=== PATIENT | male | born 1965 | race Caucasian/White ===

== ENCOUNTER 2019-07-24 07:25 | Emergency (ER) | payer MEDICARE ==
[2019-07-24] MEDS ORDERED: HYDROmorphone 0.5 MG/0.5 ML Syringe IM ONE (08:36)
--- NOTE | 2019-07-24 08:40 | EDM.PDOC ---
ED HPI GENERAL MEDICAL PROBLEM - General Chief Complaint: Lower Extremity Injury/Pain Stated Complaint: RIGHT KNEE LOTS OF PAIN Time Seen by Provider: 07/24/19 08:38 Source of Information: Reports: Patient History Limitations: Reports: No Limitations - History of Present Illness INITIAL COMMENTS - FREE TEXT/NARRATIVE: pt had a vasovagal episode and fell last nite. He landed on his rt knee and he is now having acute pain. He has some swelling in the medial aspect of the knee. Onset: Other (pt fell last nite. ) Duration: Hour(s): Location: Reports: Lower Extremity, Right Associated Symptoms: Reports: No Other Symptoms Right Knee Pain Score (Numeric/FACES): 10 - Related Data Allergies Allergy/AdvReac Type Severity Reaction Status Date / Time codeine Allergy Headache Verified 07/24/19 07:40 Home Meds: Home Meds Carvedilol 25 mg PO BID 04/23/18 [History] Furosemide 20 mg PO QAM 04/23/18 [History] Hydrocortisone [Hydrocortisone 2.5% Crm] 1 applic TOP BID 04/23/18 [History] LORazepam 1 mg PO ASDIRECTED PRN 04/23/18 [History] Verapamil [Calan SR] 300 mg PO BEDTIME 04/23/18 [History] Warfarin [Coumadin] 5 mg PO ASDIRECTED 04/23/18 [History] Losartan Potassium 50 mg PO DAILY 07/24/19 [History] Past Medical History HEENT History: Reports: Cataract Cardiovascular History: Reports: Afib, Automatic Implantable Cardioverter Defibrillators, Cardiomyopathy, Heart Failure, High Cholesterol, Hypertension, Pacemaker Respiratory History: Reports: Pneumothorax Other Respiratory History: right Musculoskeletal History: Reports: Other (See Below) Other Musculoskeletal History: impingement syndrome of both shoulders. tear ACL right. tear riht rotator cuff. Neurological History: Reports: Other (See Below) Other Neuro History: fainting "vasovagal" Psychiatric History: Reports: Addiction, Anxiety Other Psychiatric History: ETOH Dermatologic History: Reports: Other (See Below) Other Dermatologic History: dermatitis - Past Surgical History HEENT Surgical History: Reports: Cataract Surgery Respiratory Surgical History: Reports: Lung Resection GI Surgical History: Reports: Appendectomy Musculoskeletal Surgical History: Reports: Shoulder Surgery Social & Family History - Tobacco Use Smoking Status *Q: Current Every Day Smoker Years of Tobacco use: 42 Packs/Tins Daily: 1 - Caffeine Use Caffeine Use: Reports: None - Recreational Drug Use Recreational Drug Use: No Review of Systems - Review of Systems Review Of Systems: See Below Constitutional: Reports: No Symptoms Eyes: Reports: No Symptoms Ears: Reports: No Symptoms Nose: Reports: No Symptoms Mouth/Throat: Reports: No Symptoms Respiratory: Reports: No Symptoms Cardiovascular: Reports: No Symptoms GI/Abdominal: Reports: No Symptoms Musculoskeletal: Reports: Other (pt is having severe pain in the rt knee. ) ED EXAM, GENERAL - Physical Exam Exam: See Below Free Text/Narrative:: pt arrived with a very uncomfortable knee after a fall last nite. He has swelling on the inner aspect of the knee. He has a past history of a torn acl. Exam Limited By: No Limitations General Appearance: Alert, Anxious, Severe Distress Ears: Normal External Exam Extremities: Other (rt knee has swelling on the medial aspect. He is tender to palpate. Xray reveal;ed no fracture present. He has seen Dr Abel in the past so will make a referal to him for further evaluatuion. ) Neurological: Alert, Oriented, Normal Cognition Course - Vital Signs Last Recorded V/S: Last Vital Signs Temp 35.8 C 07/24/19 07:56 Pulse 68 07/24/19 09:05 Resp 16 07/24/19 09:05 BP 101/52 L 07/24/19 09:05 Pulse Ox 95 07/24/19 09:05 - Orders/Labs/Meds Meds: Medications Discontinued Medications Generic Name Dose Route Start Last Admin Trade Name Lalita PRN Reason Stop Dose Admin Hydromorphone HCl 0.5 mg 07/24/19 08:36 07/24/19 08:41 Dilaudid IM 07/24/19 08:37 0.5 mg ONETIME ONE Administration - Re-Assessments/Exams Free Text/Narrative Re-Assessment/Exam: 07/24/19 09:57 pt was given dilaudid .5 im and he did have relief. His xrays did not reveal a fracture. Departure - Departure Time of Disposition: 09:46 Disposition: Home, Self-Care 01 Condition: Fair Clinical Impression: Ligament tear of lower extremity, Torn ACL - Discharge Information Referrals: Ayden Noel, [facility] [Primary Care Provider] - Forms: ED Department Discharge Care Plan Goals: appt with Dr Abel, knee imoblizer, crutches, percocet 5/325 q6h for the next 2 days then tramodol 50 mg q6h prn for pain, cool pack knee.
--- NOTE | 2019-07-24 09:44 | CRLCR ---
Indication: Severe right knee pain. Technique: Right knee 3 views Comparison: None Findings: No acute fracture or dislocation. The patella is normally aligned. Mild medial compartment joint space narrowing and subchondral sclerosis. No knee joint effusion. Vascular calcifications posterior. Soft tissues are unremarkable. Impression: No acute findings. Dictated by Aida Morrissey MD @ Jul 24 2019 9:40AM Signed by Dr. Aida Morrissey @ Jul 24 2019 9:41AM
== END 2019-07-24 10:19 | disposition home or self-care (01) ==
LOC: JP.ED 07:25
DX: S83.511A Sprain of anterior cruciate ligament of right knee, initial encounter (principal); I48.91 Unspecified atrial fibrillation; I11.0 Hypertensive heart disease with heart failure; I50.9 Heart failure, unspecified; F17.210 Nicotine dependence, cigarettes, uncomplicated; Z88.5 Allergy status to narcotic agent; Z79.899 Other long term (current) drug therapy; W19.XXXA Unspecified fall, initial encounter
CPT/HCPCS: 73562; 96372; 99283; J1170

== ENCOUNTER 2020-02-12 11:11 | Emergency (ER) | payer MEDICARE ==
[2020-02-12] MEDS ORDERED: Ketorolac 60 MG/2 ML SDV IM ONE (12:13)
[2020-02-12] MEDS ORDERED: Cyclobenzaprine 10 MG Tab PO ONE (12:35)
--- NOTE | 2020-02-12 12:41 | EDM.PDOC ---
ED HPI GENERAL MEDICAL PROBLEM - General Chief Complaint: Back Pain or Injury Stated Complaint: BACK PAIN Time Seen by Provider: 02/12/20 12:25 Source of Information: Reports: Patient, EMS, Old Records, RN History Limitations: Reports: No Limitations - History of Present Illness INITIAL COMMENTS - FREE TEXT/NARRATIVE: 54 yo male with low back pain since yesterday not associated with any obvious injury or overuse. Has muscle spasms in his back today. Has a hard time moving. Took acetaminophen without relief. Not able to take NSAID's. No radiation down his legs. Was home alone when his spasms began so came in via EMS. Is , at work. No numbness or weakness of his LE's. No bowel or bladder issues. Has a PHx of recurrent episodes similar to this, has not been to his primary for eval of this condition. Onset: Sudden Onset Date: 02/11/20 Duration: Day(s): (1+), Constant, Getting Worse Location: Reports: Back (low) Quality: Reports: Ache, Stabbing (spasms) Severity: Severe Improves with: Reports: Rest Worsens with: Reports: Movement Context: Reports: Other (See HPI) Associated Symptoms: Reports: No Other Symptoms Treatments PILOT: Reports: Other (see below) (acetaminophen and ice) Lower Back Pain Score (Numeric/FACES): 7 - Related Data Allergies Allergy/AdvReac Type Severity Reaction Status Date / Time codeine Allergy Headache Verified 02/12/20 11:17 Home Meds: Home Meds Furosemide 20 mg PO QAM 04/23/18 [History] Hydrocortisone [Hydrocortisone 2.5% Crm] 1 applic TOP BID 04/23/18 [History] LORazepam 1 mg PO ASDIRECTED PRN 04/23/18 [History] Verapamil [Calan SR] 300 mg PO BEDTIME 04/23/18 [History] Warfarin [Coumadin] 5 mg PO ASDIRECTED 04/23/18 [History] carvediloL [Carvedilol] 25 mg PO BID 04/23/18 [History] Losartan Potassium 50 mg PO DAILY 07/24/19 [History] Acetaminophen/HYDROcodone [Malo 325-5 MG] 1 - 2 tab PO Q6H PRN #14 tab [Rx] Cyclobenzaprine [Flexeril] 10 mg PO TID PRN #14 tab 02/12/20 [Rx] Past Medical History HEENT History: Reports: Cataract Cardiovascular History: Reports: Afib, Automatic Implantable Cardioverter Defibrillators, Cardiomyopathy, Heart Failure, High Cholesterol, Hypertension, Pacemaker Respiratory History: Reports: Pneumothorax Other Respiratory History: right Musculoskeletal History: Reports: Other (See Below) Other Musculoskeletal History: impingement syndrome of both shoulders. tear ACL right. tear riht rotator cuff. Neurological History: Reports: Other (See Below) Other Neuro History: fainting "vasovagal" Psychiatric History: Reports: Addiction, Anxiety Other Psychiatric History: ETOH Dermatologic History: Reports: Other (See Below) Other Dermatologic History: dermatitis - Infectious Disease History Infectious Disease History: Reports: Chicken Pox, Mumps - Past Surgical History HEENT Surgical History: Reports: Cataract Surgery Respiratory Surgical History: Reports: Lung Resection GI Surgical History: Reports: Appendectomy Musculoskeletal Surgical History: Reports: Shoulder Surgery Social & Family History - Tobacco Use Smoking Status *Q: Current Every Day Smoker Years of Tobacco use: 40 Packs/Tins Daily: 0.5 Used Tobacco, but Quit: No Second Hand Smoke Exposure: Yes - Caffeine Use Caffeine Use: Reports: Soda - Alcohol Use Days Per Week of Alcohol Use: 0 - Recreational Drug Use Recreational Drug Use: No ED ROS GENERAL - Review of Systems Review Of Systems: See Below Constitutional: Reports: No Symptoms HEENT: Reports: No Symptoms Respiratory: Reports: No Symptoms Cardiovascular: Reports: No Symptoms GI/Abdominal: Reports: No Symptoms : Reports: No Symptoms Musculoskeletal: Reports: Back Pain (low) Skin: Reports: No Symptoms Neurological: Reports: No Symptoms Psychiatric: Reports: No Symptoms ED EXAM,LOWER BACK PAIN/INJURY - Physical Exam Exam: See Below Exam Limited By: No Limitations General Appearance: Alert, WD/WN, No Apparent Distress Eye Exam: Bilateral Eye: Normal Inspection Ears: Normal External Exam, Normal Canal, Hearing Grossly Normal, Normal TMs Nose: Normal Inspection, No Blood Throat/Mouth: Normal Inspection, Normal Lips, Normal Oropharynx, Normal Voice, No Airway Compromise Head: Atraumatic, Normocephalic Neck: Normal Inspection Respiratory/Chest: No Respiratory Distress, Lungs Clear, Normal Breath Sounds, No Accessory Muscle Use Cardiovascular: Regular Rate, Rhythm GI/Abdominal: Soft, Non-Tender Back Exam: Decreased Range of Motion, Muscle Spasm, Paraspinal Tenderness ( lumbar bilat.). No: CVA Tenderness (R), CVA Tenderness (L), Vertebral Tenderness Extremities: Normal Inspection, Normal Range of Motion, Non-Tender, No Pedal Edema. No: Pedal Edema, Leg Pain Neurological: Alert, Normal Mood/Affect, Normal Dorsiflexion, CN II-XII Intact, No Motor/Sensory Deficits, Oriented x 3 Psychiatric: Normal Affect, Normal Mood Skin Exam: Warm, Dry, Intact, Normal Color, No Rash Course - Vital Signs Last Recorded V/S: Last Vital Signs Temp 36.6 C 02/12/20 11:16 Pulse 60 02/12/20 11:16 Resp 16 02/12/20 11:16 BP 114/78 02/12/20 11:16 Pulse Ox 99 02/12/20 11:16 - Orders/Labs/Meds Orders: Active Orders 24 hr Category Date Time Status Lumbar Spine 2 or 3V [CR] Stat Exams 02/12/20 12:35 Taken Meds: Medications Discontinued Medications Generic Name Dose Route Start Last Admin Trade Name Freq PRN Reason Stop Dose Admin Cyclobenzaprine HCl 10 mg 02/12/20 12:35 02/12/20 12:50 Flexeril PO 02/12/20 12:36 10 mg ONETIME ONE Administration Ketorolac Tromethamine 60 mg 02/12/20 12:13 02/12/20 12:21 Toradol IM 02/12/20 12:14 60 mg ONETIME ONE Administration - Radiology Interpretation Free Text/Narrative:: Lumbar spine x-ray-[id number] disc space narrowing, degen spurring, loss of lumbar lordosis. Departure - Departure Time of Disposition: 13:45 Disposition: Home, Self-Care 01 Condition: Fair Clinical Impression: Low back pain Qualifiers: Chronicity: acute Back pain laterality: bilateral Sciatica presence: without sciatica Qualified Code(s): M54.5 - Low back pain - Discharge Information *PRESCRIPTION DRUG MONITORING PROGRAM REVIEWED*: No *COPY OF PRESCRIPTION DRUG MONITORING REPORT IN PATIENT SIMÓN: No Prescriptions: Acetaminophen/HYDROcodone [Malo 325-5 MG] 1 - 2 tab PO Q6H PRN #14 tab PRN Reason: Pain Cyclobenzaprine [Flexeril] 10 mg PO TID PRN #14 tab PRN Reason: Spasms Instructions: Acute Back Pain, Adult Referrals: PCP,None [Primary Care Provider] - Forms: ED Department Discharge Additional Instructions: Avoid lifting, bending, or twisting. Take Flexeril every 8 hrs as needed for spasms. Take either acetaminophen OR Malo for added relief. May use heat or ice. F/U with your provider for recheck soon. Sepsis Event Note - Evaluation Sepsis Screening Result: No Definite Risk - Focused Exam Vital Signs: Vital Signs Temp Pulse Resp BP Pulse Ox 02/12/20 11:16 36.6 C 60 16 114/78 99 Date Exam was Performed: 02/12/20 Time Exam was Performed: 13:40 - My Orders Last 24 Hours: My Active Orders 02/12/20 12:35 Lumbar Spine 2 or 3V [CR] Stat - Assessment/Plan Last 24 Hours: My Active Orders 02/12/20 12:35 Lumbar Spine 2 or 3V [CR] Stat
--- NOTE | 2020-02-12 13:41 | CR ---
Lumbar Spine 2 or 3V CLINICAL HISTORY: Back pain FINDINGS: The vertebral body heights are maintained. . There is moderate degenerative disc changes at L4-5 and L5-S1 with spondylosis seen diffusely. Patient has a dextrorotoscoliosis. There is a grade 1 retrolisthesis of L3 on L4 likely due to facet disease which is seen diffusely. IMPRESSION: Moderate degenerative disc changes most notable at L4-5 and L5-S1 with diffuse spondylosis Diffuse osteoarthropathy Dextrorotoscoliosis
== END 2020-02-12 13:50 | disposition home or self-care (01) ==
LOC: JP.ED 11:11
DX: M54.5 Low back pain (principal); I48.91 Unspecified atrial fibrillation; I11.0 Hypertensive heart disease with heart failure; I50.9 Heart failure, unspecified; F17.210 Nicotine dependence, cigarettes, uncomplicated; Z79.899 Other long term (current) drug therapy; Z95.0 Presence of cardiac pacemaker; Z88.5 Allergy status to narcotic agent
CPT/HCPCS: 72100; 72100-26; 96372; 99283; 99284-25; A9270-GY; J1885

== ENCOUNTER 2020-06-05 00:52 | Emergency (ER) | payer MEDICARE ==
[2020-06-05] MEDS ORDERED: Albuterol/Ipratropium 3.0-0.5 MG/3 ML Neb Soln NEB ONE (01:38)
--- NOTE | 2020-06-05 01:50 | EDM.PDOC ---
ED HPI GENERAL MEDICAL PROBLEM - General Chief Complaint: Respiratory Problem Stated Complaint: TROUBLE BREATHING Time Seen by Provider: 06/05/20 01:30 Source of Information: Reports: Patient History Limitations: Reports: No Limitations - History of Present Illness INITIAL COMMENTS - FREE TEXT/NARRATIVE: 54-year-old male, chronic smoker, presents with shortness of breath for the past 2 weeks. Seems worse when he lies down, so he thinks he is "filling up with fluid". No fevers or chills. Currently smoking over a pack of cigarettes a day. He does have a history of "double pneumonia" 15 years ago and had a partial pneumonectomy on the right side. Also apparently had an LA and acute cardiac failure. Onset: Gradual Duration: Week(s): (Symptoms for 2 weeks) Associated Symptoms: Reports: Other (Has had some diarrhea, also some hemorrhoids) rib pain due to coughing Pain Score (Numeric/FACES): 6 - Related Data Allergies Allergy/AdvReac Type Severity Reaction Status Date / Time codeine Allergy Headache Verified 06/05/20 01:15 Home Meds: Home Meds Furosemide 20 mg PO QAM 04/23/18 [History] Hydrocortisone [Hydrocortisone 2.5% Crm] 1 applic TOP BID 04/23/18 [History] LORazepam 1 mg PO ASDIRECTED PRN 04/23/18 [History] Verapamil [Calan SR] 300 mg PO BEDTIME 04/23/18 [History] Warfarin [Coumadin] 5 mg PO ASDIRECTED 04/23/18 [History] carvediloL [Carvedilol] 25 mg PO BID 04/23/18 [History] Losartan Potassium 50 mg PO DAILY 07/24/19 [History] Cyclobenzaprine [Flexeril] 10 mg PO TID PRN #14 tab 02/12/20 [Rx] Past Medical History HEENT History: Reports: Cataract Cardiovascular History: Reports: Afib, Automatic Implantable Cardioverter Defibrillators, Cardiomyopathy, Heart Failure, High Cholesterol, Hypertension, Pacemaker Respiratory History: Reports: Pneumothorax Other Respiratory History: right Musculoskeletal History: Reports: Other (See Below) Other Musculoskeletal History: impingement syndrome of both shoulders. tear ACL right. tear riht rotator cuff. crushed discs in back Neurological History: Reports: Other (See Below) Other Neuro History: fainting "vasovagal" Psychiatric History: Reports: Addiction, Anxiety Other Psychiatric History: ETOH Hematologic History: Reports: Anticoagulation Therapy Dermatologic History: Reports: Other (See Below) Other Dermatologic History: dermatitis - Infectious Disease History Infectious Disease History: Reports: Chicken Pox, Mumps - Past Surgical History HEENT Surgical History: Reports: Cataract Surgery Respiratory Surgical History: Reports: Lung Resection GI Surgical History: Reports: Appendectomy Musculoskeletal Surgical History: Reports: Shoulder Surgery Social & Family History - Tobacco Use Smoking Status *Q: Current Every Day Smoker Years of Tobacco use: 44 Packs/Tins Daily: 1 - Caffeine Use Caffeine Use: Reports: None - Recreational Drug Use Recreational Drug Use: No ED ROS GENERAL - Review of Systems Review Of Systems: See Below Constitutional: Reports: Chills, Malaise. Denies: Fever HEENT: Reports: No Symptoms Respiratory: Reports: Shortness of Breath, Cough, Sputum Cardiovascular: Denies: Chest Pain, Palpitations GI/Abdominal: Denies: Abdominal Pain, Nausea, Vomiting Skin: Reports: No Symptoms Neurological: Denies: Headache ED EXAM, GENERAL - Physical Exam Exam: See Below Exam Limited By: No Limitations General Appearance: Alert, No Apparent Distress (Looks uncomfortable but not distressed) Head: Atraumatic Neck: Supple, Non-Tender Respiratory/Chest: Other (Diffuse decreased breath sounds but no wheezing or basilar rales) Cardiovascular: Regular Rate, Rhythm Extremities: Normal Inspection Neurological: Alert, Oriented Psychiatric: Anxious Skin Exam: Warm, Dry Course - Vital Signs Last Recorded V/S: Last Vital Signs Temp 97.3 F 06/05/20 01:24 Pulse 64 06/05/20 01:24 Resp 16 06/05/20 01:24 BP 96/54 L 06/05/20 02:17 Pulse Ox 93 L 06/05/20 01:24 - Orders/Labs/Meds Orders: Active Orders 24 hr Category Date Time Status Chest 2V [CR] Routine Exams 06/05/20 01:37 Taken Meds: Medications Discontinued Medications Generic Name Dose Route Start Last Admin Trade Name Freq PRN Reason Stop Dose Admin Albuterol/Ipratropium 3 ml 06/05/20 01:38 06/05/20 01:53 Duoneb 3.0-0.5 Mg/3 Ml NEB 06/05/20 01:39 3 ml ONETIME ONE Administration - Re-Assessments/Exams Free Text/Narrative Re-Assessment/Exam: 06/05/20 02:08 2 view chest x-ray was obtained and shows COPD changes. No infiltrates or effusions, no congestive heart failure. Patient was then given a DuoNeb which gave him fairly good objective and subjective improvement. He will be discharged on 50 mg of prednisone daily for 6 consecutive days, and albuterol inhaler, and a course of Zithromax. Rechecking with his primary provider next week would be beneficial. He can return sooner if worsening despite treatment. Departure - Departure Time of Disposition: 02:16 Disposition: Home, Self-Care 01 Clinical Impression: Acute exacerbation of chronic obstructive pulmonary disease (COPD) - Discharge Information Instructions: Chronic Obstructive Pulmonary Disease, [id number] Referrals: Ayden Noel NP [Primary Care Provider] - Forms: ED Department Discharge Care Plan Goals: Take 5 pills of prednisone with food with your first meal each day for the next 6 days. Take the 5-day course of antibiotics as prescribed starting tonight. Use 1 to 2 puffs of the inhaler every 3-4 hours for tightness and shortness of breath, and avoid future cigarette smoking. Recheck with your regular doctor next week to monitor your progress and discuss any other options of treatment. Return sooner if worsening or concerns. Sepsis Event Note (ED) - Evaluation Sepsis Screening Result: No Definite Risk - Focused Exam Vital Signs: Vital Signs Temp Pulse Resp BP Pulse Ox 06/05/20 02:17 96/54 L 06/05/20 01:24 97.3 F 64 16 82/49 L 93 L 06/05/20 01:22 97.3 F 64 16 82/49 L 93 L - My Orders Last 24 Hours: My Active Orders 06/05/20 01:37 Chest 2V [CR] Routine - Assessment/Plan Last 24 Hours: My Active Orders 06/05/20 01:37 Chest 2V [CR] Routine
--- NOTE | 2020-06-05 09:35 | CR ---
CHEST: 2 view CLINICAL HISTORY:Dyspnea COMPARISON:None FINDINGS: The heart size, pulmonary vascularity and hilar structures are normal. No infiltrate effusion or pneumothorax is seen. Patient has permanent cardiac pacer/defibrillator. There are atherosclerotic changes in the aorta. Lungs are hyperaerated IMPRESSION: No acute cardiopulmonary process. Emphysematous changes
== END 2020-06-05 02:25 | disposition home or self-care (01) ==
LOC: JP.ED 00:52
DX: J44.1 Chronic obstructive pulmonary disease with (acute) exacerbation (principal); I48.91 Unspecified atrial fibrillation; I11.0 Hypertensive heart disease with heart failure; I50.9 Heart failure, unspecified; F17.210 Nicotine dependence, cigarettes, uncomplicated; Z95.0 Presence of cardiac pacemaker; Z79.899 Other long term (current) drug therapy; Z88.5 Allergy status to narcotic agent
CPT/HCPCS: 71046; 71046-26; 94640; 99284; 99285-25; J7620-GY

== ENCOUNTER 2021-04-16 17:41 | Emergency (ER) | payer MEDICARE ==
--- NOTE | 2021-04-16 18:42 | EDM.PDOC ---
ED HPI GENERAL MEDICAL PROBLEM - General Chief Complaint: General Stated Complaint: RASH Time Seen by Provider: 04/16/21 18:11 Source of Information: Reports: Patient History Limitations: Reports: No Limitations - History of Present Illness INITIAL COMMENTS - FREE TEXT/NARRATIVE: Rahul is a 55-year-old male presenting to the ED for evaluation of a perineal rash and "a bulging vein between his ball sac and ass crack that is freaking him out." Patient is also been having a rash around his anus. He saw his primary doctor for it a month ago who put him on an antifungal cream but it has not improved the situation. He has been using Preparation H on his rectum without much relief. He denies any bleeding. He does have a history for external hemorrhoids. He has never had a thrombosed hemorrhoid to date. He has been very anxious about this bulging and the lack of improvement of his rash. He says he is showered multiple times a day to try to keep clean. Feels frustrated that the rash has not improved. - Related Data Allergies Allergy/AdvReac Type Severity Reaction Status Date / Time codeine Allergy Headache Verified 04/16/21 18:17 Home Meds: Home Meds Furosemide 20 mg PO QAM PRN 04/23/18 [History] Hydrocortisone [Hydrocortisone 2.5% Crm] 1 applic TOP BID 04/23/18 [History] LORazepam 1 mg PO ASDIRECTED PRN 04/23/18 [History] Verapamil [Calan SR] 300 mg PO BEDTIME 04/23/18 [History] Warfarin [Coumadin] 5 mg PO ASDIRECTED 04/23/18 [History] carvediloL [Carvedilol] 12.5 mg PO BID 04/23/18 [History] Losartan Potassium 50 mg PO DAILY 07/24/19 [History] Cyclobenzaprine [Flexeril] 10 mg PO TID PRN #14 tab 02/12/20 [Rx] Fluconazole 150 mg PO ONETIME 1 Days #1 tablet 04/16/21 [Rx] Past Medical History HEENT History: Reports: Cataract Cardiovascular History: Reports: Afib, Automatic Implantable Cardioverter Defibrillators, Cardiomyopathy, Heart Failure, High Cholesterol, Hypertension, Pacemaker Respiratory History: Reports: Pneumothorax Other Respiratory History: right Musculoskeletal History: Reports: Other (See Below) Other Musculoskeletal History: impingement syndrome of both shoulders. tear ACL right. tear riht rotator cuff. crushed discs in back Neurological History: Reports: Other (See Below) Other Neuro History: fainting "vasovagal" Psychiatric History: Reports: Addiction, Anxiety Other Psychiatric History: ETOH Hematologic History: Reports: Anticoagulation Therapy Dermatologic History: Reports: Other (See Below) Other Dermatologic History: dermatitis - Infectious Disease History Infectious Disease History: Reports: Chicken Pox, Mumps - Past Surgical History HEENT Surgical History: Reports: Cataract Surgery Respiratory Surgical History: Reports: Lung Resection GI Surgical History: Reports: Appendectomy Musculoskeletal Surgical History: Reports: Shoulder Surgery Social & Family History - Tobacco Use Tobacco Use Status *Q: Current Every Day Tobacco User Years of Tobacco use: 40 Packs/Tins Daily: 1 - Caffeine Use Caffeine Use: Reports: None - Recreational Drug Use Recreational Drug Use: No ED ROS GENERAL - Review of Systems Review Of Systems: See Below GI/Abdominal: Reports: Other (Painful swollen area on the rectum) : Reports: No Symptoms Musculoskeletal: Reports: No Symptoms Skin: Reports: Rash (Rash around the rectum) Psychiatric: Reports: Anxiety ED EXAM, GENERAL - Physical Exam Exam: See Below Exam Limited By: No Limitations General Appearance: Alert, No Apparent Distress, Anxious Rectal (Males) Exam: Normal Rectal Tone, Hemorrhoids (Patient has a thrombosed external hemorrhoid at 7:00 on the rectum. The area is minimally tender. The thrombosed hemorrhoid is very small.) Skin Exam: Rash (Perirectal erythematous rash with satellite lesions consistent with candidiasis.) Course - Vital Signs Last Recorded V/S: Last Vital Signs Temp 36.2 C 04/16/21 18:21 Pulse 88 04/16/21 18:21 Resp 16 04/16/21 18:21 BP 99/63 04/16/21 18:21 Pulse Ox 98 04/16/21 18:21 - Re-Assessments/Exams Free Text/Narrative Re-Assessment/Exam: 04/16/21 18:50 Rahul has a small thrombosed hemorrhoid at 7:00 on the rectum. This area is too small to I&D. We will treated more conservatively using sitz baths and Tucks pads. He may continue to use the Preparation H hemorrhoidal cream. He also has a perianal rash which we will treat with Diflucan 150 mg now and of a second pill in 2 weeks. Departure - Departure Time of Disposition: 18:42 Disposition: Home, Self-Care 01 Clinical Impression: Thrombosed external hemorrhoid, Dilia infection of genital region - Discharge Information Instructions: Genital Yeast Infection, Male, Nonsurgical Procedures for Hemorrhoids Referrals: Ayden Noel [employer] [Primary Care Provider] - Care Plan Goals: I recommend using sitz baths (filling the tub with 6 inches of warm water and soaking in it for 15 minutes after each bowel movement) and the use of Tucks pads which are treated with witch chris it will help reduce the inflammation and keep the area clean. For the fungal infection we are going to treat you with Diflucan 1 pill today and the second pill in 2 weeks. I have printed a prescription for you for the second pill that you can fill at the pharmacy. Fungal infections are very slow-growing so it may take up to 2-4 weeks for the rash to go away. Sepsis Event Note (ED) - Evaluation Sepsis Screening Result: No Definite Risk - Focused Exam Vital Signs: Vital Signs Temp Pulse Resp BP Pulse Ox 04/16/21 18:21 36.2 C 88 16 99/63 98 04/16/21 18:06 36.2 C 88 16 99/63 98 - Problem List & Annotations (1) Dilia infection of genital region SNOMED Code(s): 416177813 Code(s): B37.49 - OTHER UROGENITAL CANDIDIASIS Status: Acute Priority: Low Current Visit: Yes (2) Thrombosed external hemorrhoid SNOMED Code(s): 17310455 Code(s): K64.5 - PERIANAL VENOUS THROMBOSIS Status: Acute Priority: Low Current Visit: Yes - Problem List Review Problem List Initiated/Reviewed/Updated: Yes
[2021-04-16] MEDS ORDERED: Fluconazole 150 MG Tab PO ONE (18:44)
== END 2021-04-16 19:00 | disposition home or self-care (01) ==
LOC: JP.ED 17:41
DX: B37.49 Other urogenital candidiasis (principal); K64.5 Perianal venous thrombosis; I48.91 Unspecified atrial fibrillation; I11.0 Hypertensive heart disease with heart failure; I50.9 Heart failure, unspecified; Z72.0 Tobacco use; Z79.01 Long term (current) use of anticoagulants; Z88.5 Allergy status to narcotic agent; Z79.899 Other long term (current) drug therapy
CPT/HCPCS: 99282; 99283; A9270

== ENCOUNTER 2021-11-03 18:20 | Emergency (ER) | payer MEDICARE ==
[2021-11-03] MEDS ORDERED: Ketorolac 30 MG/ML SDV IM ONE (19:26)
[2021-11-03] MEDS ORDERED: LORazepam 0.5 MG Tab PO ONE (19:26)
[2021-11-03] MEDS ORDERED: HYDROmorphone 1 MG/ML Syringe IM ONE (20:12)
== END 2021-11-03 21:53 | disposition home or self-care (01) ==
LOC: JP.ED 18:20
DX: M54.50 Low back pain, unspecified (principal); I48.91 Unspecified atrial fibrillation; E78.00 Pure hypercholesterolemia, unspecified; I10 Essential (primary) hypertension; Z95.0 Presence of cardiac pacemaker; Z88.5 Allergy status to narcotic agent; Z79.01 Long term (current) use of anticoagulants; Z79.899 Other long term (current) drug therapy; Z72.0 Tobacco use
CPT/HCPCS: 96372; 99283; A9270; J1170; J1885